=== PATIENT | female | born 1990 | race Caucasian/White ===

== ENCOUNTER → 2016-09-18 | Outpatient (CLI) | payer MEDICAID | LOC: FIMAGING 10:47 | DX: M79.671 Pain in right foot (principal) ==

== ENCOUNTER 2016-09-22 01:08 | Emergency (ER) | payer MEDICAID ==
[2016-09-22] MEDS ORDERED: IPRATROPIUM/ALBUTEROL 3 ML DEYVIAL ONE (01:20)
[2016-09-22] MEDS ORDERED: IPRATROPIUM/ALBUTEROL 3 ML DEYVIAL IH ONE (01:30)
[2016-09-22] MEDS ORDERED: ALBUTEROL INH PREPACK MDI TAKEHOME ONE (01:52)
--- NOTE | 2016-09-22 01:52 | EDPHY ---
H & P Stated Complaint: SOB, hx of asthma Time Seen by Provider: 09/22/16 01:12 HPI/ROS: Chief complaint: Shortness of breath HPI: 26-year-old female with a history of asthma, not currently on medications , presenting with shortness of breath this evening. Patient states that she has had increasing wheezing and tightness in her chest tonight. Has had male were many similar episodes in the past. Is not currently taking any medications for her asthma as she only got insurance 2 days ago. Dry cough which is nonproductive. No fevers or chills. She does smoke. And is admit that she has been drinking alcohol this evening. No calf pain or swelling. No recent travel. Is not taking oral contraceptives. ROS: 10 point Review of Systems is negative except as noted in the HPI. Past medical history: Asthma Medications: None Allergies: None Physical exam: Gen: Awake, Alert, slurred speech, smells of alcohol HEENT: Nose: no rhinorrhea Eyes: PERRLA, EOMI Mouth: Moist mucosa Neck: Supple, no JVD Chest: nontender, generalized wheeze with forced expiration, no focal rales or rhonchi Heart: S1, S2 normal, no murmur Abd: Soft, non-tender, no guarding Back: no CVA tenderness, no midline tenderness Ext: no edema, non-tender Skin: no rash Neuro: CN II-XII intact, Sensation grossly intact, Strength 5/5 in bilateral upper and lower extremities - Personal History LMP (Females 10-55): 15-21 Days Ago Current Tetanus/Diphtheria Vaccine: Unsure Current Tetanus Diphtheria and Acellular Pertussis (TDAP): Unsure - Medical/Surgical History Hx Asthma: Yes Hx Chronic Respiratory Disease: No Hx Diabetes: No Hx Cardiac Disease: No Hx Renal Disease: No Hx Cirrhosis: No Hx Alcoholism: No Hx HIV/AIDS: No Hx Splenectomy or Spleen Trauma: No Other PMH: asthma - Social History Smoking Status: Current every day smoker Constitutional: Initial Vital Signs Heart Rate 72 09/22/16 01:22 Respiratory Rate 20 09/22/16 01:22 Blood Pressure 110/73 09/22/16 01:22 O2 Sat (%) 97 09/22/16 01:22 O2 Delivery Mode Room Air Allergies/Adverse Reactions: No Known Allergies Allergy (Unverified 09/22/16 01:42) Home Medications: Medication Instructions Recorded NK [No Known Home Meds] 09/22/16 Medical Decision Making ED Course/Re-evaluation: Patient is improved after DuoNeb. Will send her home with an albuterol inhaler with a spacer, instructions to follow up with primary care physician. Will refer her for outpatient follow-up. She will return for worsening symptoms. There is no evidence of respiratory infection at this time. She has normal oxygen levels, not tachycardic, no risk factors for DVT or PE. - Data Points Medications Given: Discontinued Medications Albuterol/Ipratropium (Duoneb) 3 ml IH EDNOW ONE Stop: 09/22/16 01:31 Last Admin: 09/22/16 01:41 Dose: 3 ml Departure - Departure Disposition: Home, Routine, Self-Care Clinical Impression: Exacerbation of asthma Condition: Good Instructions: Asthma (ED) Additional Instructions: You may use your Ob oral inhaler, 2 puffs every 4 hours as needed for wheeze. Always use a spacer with your inhaler. Follow up with your doctor [facility] in 2-3 days. Referrals: OZZIE ALBERTS [Other] - As per Instructions
[2016-09-22 02:01] VITALS: BP 125/83; PULSE 99; RESP 16; TEMP 97.3; O2SAT 94
== END 2016-09-22 02:00 | disposition home or self-care (01) ==
DX: J45.901 Unspecified asthma with (acute) exacerbation (principal); F17.200 Nicotine dependence, unspecified, uncomplicated